=== PATIENT | female | born 1935 | race Caucasian/White ===

== ENCOUNTER 2017-02-20 09:38 | Day surgery (SDC) | payer MEDICARE, BC ==
[2017-02-20] MEDS ORDERED: LIDOCAINE 2% MDV (20MG/ML) 20ML VIAL IV ONE (14:00)
[2017-02-20] MEDS ORDERED: PROPOFOL 10 MG/ML VIAL IV ONE (14:00)
--- NOTE | 2017-02-26 16:10 | Operative Note ---
DATE OF SURGERY: 02/20/2017 OPERATION: Surveillance COLONOSCOPY. PREOPERATIVE DIAGNOSIS: Personal history of colon cancer. POSTOPERATIVE DIAGNOSIS: Sigmoid diverticulosis, normal-appearing ileocolonic anastomosis. PREPARATION QUALITY: Fair. ESTIMATED BLOOD LOSS: None. PROCEDURE: After informed consent was obtained from the patient, she was placed in the left lateral decubitus position in the endoscopy suite, sedated and monitored by the department of anesthesia. Digital rectal exam was unremarkable. A well-lubricated REX402 colonoscope was inserted into the rectum and advanced to the cecum. In fact, this was a nestor-cecum, as there appeared to be an ileocolonic anastomosis in the region. Preparation quality was fair. The nestor-cecum, ascending colon, transverse colon, descending colon, sigmoid colon, and rectum were unremarkable other than a few sigmoid diverticula being noted. J-turn views of the anorectum were unremarkable. The endoscope was straightened, the rectal ampulla deflated, and the endoscope was removed. RECOMMENDATIONS: The patient should follow a high-fiber diet. She should resume her medications. Given her age, I do not believe continued surveillance is warranted. If she has any symptoms, I would be happy to see her in followup. As always, thank you for allowing me to participate in the healthcare of your patients. CC: Dr. Charmaine BUSH
== END 2017-02-20 14:22 | disposition home or self-care (01) ==
LOC: HOP 09:38
PROVIDERS: ATTEND Internal Medicine Gastroenterology
DX: Z12.11 Encounter for screening for malignant neoplasm of colon (principal); Z86.010 Personal history of colon polyps; I10 Essential (primary) hypertension; K57.30 Diverticulosis of large intestine without perforation or abscess without bleeding
CPT/HCPCS: 00810; G0105